=== PATIENT | male | born 1980 | race Two or more races ===

== ENCOUNTER 2022-03-17 07:52 | Emergency (ER) | payer OTHER, SELFPAY ==
[2022-03-17 07:54] VITALS: BP 154/109; PULSE 82; RESP 18; TEMP 36.7; O2SAT 99; BMI 33.0
== END 2022-03-18 04:08 | disposition left against medical advice (07) ==
PROVIDERS: Emergency Provider Emergency Medicine; PCP Internal Medicine
DX: M79.672 Pain in left foot (principal)
CPT/HCPCS: 99281